=== PATIENT | female | born 1940 | race Caucasian/White ===

== ENCOUNTER → 2017-12-19 | Day surgery (SDC) | payer OTHER ==
--- OUTSIDE RECORDS SUMMARY | 2017-12-19 09:59 | XMS REPORT ---
:1940 Author Organization eClinicalWorks Care Team Providers Name Role Phone Karyna Kim Provider Role Unavailable Allergies, Adverse Reactions, Alerts Substance Reaction Event Type N.K.D.A. 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 Active Assessment Depression, unspecified depression F32.9 Active type Assessment Dementia without behavioral F03.90 Active disturbance, unspecified dementia type Problem Depression, unspecified depression F32.9 Active type Medications Medication Code Code Instructions Start End Date Status Dosage System Date Cranberry [facility] [address] 500 MG Orally Active as directed Prozac [facility] [id number] 10 MG Orally Active 1 capsule Once a day Results No Known Results Summary Purpose eClinicalWorks Submission
--- NOTE | 2017-12-19 11:20 | RAD REPORT ---
EXAM DESCRIPTION: US - Breast Core BX w/US Guidance - 12/19/2017 10:55 am CLINICAL HISTORY: Lateral right breast mass COMPARISON: Mammogram and ultrasound studies December 07 and December 05 TECHNIQUE: Patient presents for ultrasound-guided biopsy of the previously detailed 8-10 mm suspicio us lateral right breast mass. Prior imaging studies were reviewed. The ultrasound-guided biopsy procedure, risks and alternatives were discussed with the patient in det ail. After answering all questions, both oral and written consent were obtained. Patient had no contr aindicated allergy or medication history. Preliminary imaging again identified the lateral right breast mass. After time-out procedure, the nati ast was prepped and draped in the usual sterile fashion. From an inferior approach, skin and deeper t issues were anesthetized with 1% lidocaine. Under sonographic guidance a 14 gauge vacuum assisted biopsy needle was advanced with the tip placed at the inferior margin of the mass. A 2 centimeter core biopsy was obtained. The biopsy procedure was repeated 2 additional times. At the conclusion of the procedure a localization clip was placed using ultrasound guidance. During the course of the biopsy procedure, the mass was found be quite mobile and very easily displac ed. It was difficult to definitively fixed or stabilize the lesion for biopsy. Small amount of bleedi ng around the nodule obscure the margins further limiting ability to definitively biopsy lesion. At the conclusion the procedure a sterile bandage was placed to the puncture site. There was some min imal bleeding around the lesion but no measurable hematoma. Postprocedure care and precaution instruc tions were given to the patient. IMPRESSION: Ultrasound-guided biopsy of the right breast mass as detailed. A total of 3 core biopsie s were obtained with placement of a localization clip. The small lesion was very mobile and difficult to fix in place for definitive tissue sampling. The ma ss is suspicious on imaging. If the final pathology report shows no malignancy or does not provide a definitive diagnosis to explain the presence of this mass, excisional biopsy will likely be needed.
== END | disposition home or self-care (01) ==
LOC: DS 09:44
PROVIDERS: ATTEND Clinical Nurse Specialist Women's Health
DX: C50.911 Malignant neoplasm of unspecified site of right female breast (principal); Z17.0 Estrogen receptor positive status [ER+]
CPT/HCPCS: 19083; 88305

== ENCOUNTER 2018-06-22 11:21 | Emergency (ER) | payer OTHER ==
--- OUTSIDE RECORDS SUMMARY | 2018-06-22 11:25 | XMS REPORT ---
[...] End Date Status Dosage System Date Cranberry [facility] [address] 500 MG Orally Active as directed Prozac [facility] [id number] 10 MG Orally Active 1 capsule Once a day Results No Known Results Summary Purpose eClinicalWorks Submission
--- OUTSIDE RECORDS SUMMARY | 2018-06-22 11:25 | XMS REPORT ---
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
[2018-06-22] MEDS ORDERED: NA CHLORIDE 0.9% 500 ML ONE ×2 (12:03→14:59)
[2018-06-22 12:54] LABS: Absolute Lymphocytes (CBC) 0.9 K/uL (0.7-4.9); Absolute Monocytes 0.9 K/uL (0.1-1.3); Absolute Neutrophil 6.9 K/uL (1.8-8.0); Basophils % 0.4 % (0-1.3); Eosinophils % 0.7 % (0-4.4); Hematocrit 40.8 % (36.0-45.0); Lymphocytes % 10.7 % (15.3-44.8); MPV 9.4 fL (7.6-11.3); Monocytes % 10.1 % (3.3-12.3); RBC Red Blood Cell Count 4.58 M/uL (3.86-4.86)
[2018-06-22 13:03] LABS: Magnesium 2.1 mg/dL (1.8-2.4); Potassium 3.9 mmol/L (3.5-5.1)
--- NOTE | 2018-06-22 13:23 | EKG ---
Test Date: 2018-06-22 Test Time: 11:35:01 Log Driver: MALLORIE MEASUREMENT RESULTS: Intervals: Rate: 60 UT: 144 QRSD: 92 QT: 406 QTc: 406 Stevenson: P: 60 UT: 144 QRS: 5 T: 33 INTERPRETIVE STATEMENTS: Sinus rhythm with premature supraventricular complexes Low voltage QRS Septal infarct, age undetermined Abnormal ECG No previous ECG available for comparison Electronically Signed On 06-22-18 13:23:13 CDT by Kashif Rios
[2018-06-22 13:39] LABS: Urine Blood NEGATIVE (NEG); Urine Glucose NEGATIVE (NEG); Urine Protein NEGATIVE (NEG)
[2018-06-22 13:58] LABS: Urine Amorphous Sediment 3+ /HPF (NONE SEEN); Urine Bacteria NONE SEEN /HPF (<20); Urine Culture Reflex Order NOT NEEDED; Urine RBC NONE SEEN /HPF (NONE SEEN)
--- NOTE | 2018-06-22 14:40 | ER ---
Nurse's Notes [facility] Name: Jessica Thapa Age: 78 yrs Sex: Female : 1940 Arrival Date: 06/22/2018 Time: 11:27 Bed 17 Private MD: Diagnosis: Dehydration;Weakness Presentation: 06/22 11:28 Presenting complaint: EMS states: Facility reports increased weakness. Daughter reports jl7 she was not this weak yesterday, today she had to help her to the stretcher. Daughter reports mental status is baseline, she has an appointment with neurology in the next few weeks to discontinue medications due to shuffling gait and crying all the time. Transition of care: patient was not received from another setting of care. Onset of symptoms was June 22, 2018. Risk Assessment: Do you want to hurt yourself or someone else? Patient reports no desire to harm self or others. Initial Sepsis Screen: Does the patient meet any 2 criteria? No. Patient's initial sepsis screen is negative. Does the patient have a suspected source of infection? No. Patient's initial sepsis screen is negative. Care prior to arrival: Medication(s) given: Normal saline infusion, 500 mL, IV initiated. 20 GA, in the right wrist, Glucose check: 112. 11:28 Method Of Arrival: EMS: [facility] jl7 11:28 Acuity: CAITY 3 jl7 Historical: - Allergies: 11:35 No Known Allergies; jl7 - PMHx: 11:35 breast cancer; Bipolar disorder; Alzheimers; jl7 - Immunization history:: Adult Immunizations up to date. - Social history:: Smoking status: Patient/guardian denies using tobacco. - Ebola Screening: : No symptoms or risks identified at this time. - Family history:: not pertinent. - Hospitalizations: : No recent hospitalization is reported. Screenin:00 Abuse screen: Denies threats or abuse. Denies injuries from another. Nutritional jl7 screening: No deficits noted. Tuberculosis screening: No symptoms or risk factors identified. Fall Risk No fall in past 12 months (0 pts). Secondary diagnosis (15 points) Alzheimer's, dementia, IV access (20 points). Ambulatory Aid- None/Bed Rest/Nurse Assist (0 pts). Gait- Weak (10 pts.). Mental Status- Overestimates/Forgets Limitations (15 pts.). Total Demarco Fall Scale indicates High Risk Score (45 or more points). Fall prevention measures have been instituted. Side Rails Up X 2 Placed Close to Nursing Station Frequent Obs/Assessments Occuring Family Present and informed to notify staff if the need to leave the bedside As available patient and family educated on Fall Prevention Program and Strategies. Assessment: 11:30 General: Appears in no apparent distress. uncomfortable, Behavior is cooperative, jl7 crying. Pain: Denies pain. Neuro: Level of Consciousness is awake, alert, obeys commands, Oriented to person, place. Cardiovascular: Patient's skin is warm and dry. Respiratory: Airway is patent Respiratory effort is even, unlabored, Respiratory pattern is regular, symmetrical. GI: No signs and/or symptoms were reported involving the gastrointestinal system. : No signs and/or symptoms were reported regarding the genitourinary system. EENT: No signs and/or symptoms were reported regarding the EENT system. Derm: Skin is pink, warm \T\ dry. Musculoskeletal: No signs and/or symptoms reported regarding the musculoskeletal system. 12:30 Reassessment: Patient appears in no apparent distress at this time. No changes from jl7 previously documented assessment. Patient and/or family updated on plan of care and expected duration. Pain level reassessed. 14:00 Reassessment: Patient appears in no apparent distress at this time. Patient and/or jl7 family updated on plan of care and expected duration. Pain level reassessed. pt attempting to get out of bed, pt asking where her daughters went, told pt that her daughters went to get something to eat, able to get pt back in bed at this time. 14:25 Reassessment: Pt's daughters at bedside. jl7 14:45 Reassessment: Pt will be discharged once fluids are done infusing. jl7 16:00 Reassessment: Patient appears in no apparent distress at this time. No changes from jl7 previously documented assessment. Patient and/or family updated on plan of care and expected duration. Pain level reassessed. Vital Signs: 11:35 BP 133 / 62; Pulse 58; Resp 16 S; Temp 98.2(O); Pulse Ox 96% on R/A; Pain 0/10; jl7 13:07 BP 154 / 67; Pulse 55; Resp 14; Pulse Ox 97% on R/A; ms 16:00 BP 132 / 65; Pulse 59; Resp 16 S; Pulse Ox 100% on R/A; jl7 ED Course: 11:27 Patient arrived in ED. jl7 11:28 Jerald Beckford, SUSAN is Primary Nurse. jl7 11:34 Triage completed. jl7 11:35 Arm band placed on right wrist. jl7 11:35 Patient has correct armband on for positive identification. Placed in gown. Bed in low jl7 position. Call light in reach. Side rails up X2. 11:35 air sampling and monitoring on. Pulse ox on. NIBP on. Warm blanket given. jl7 11:38 Bruce Valladares MD is Attending Physician. rn 11:59 EKG done, by voip technician. reviewed by Bruce Valladares MD. at1 12:45 Initial lab(s) drawn, by or, sent to lab. First set of blood cultures drawn by me, jl7 Urine collected: straight cath specimen, cloudy, Amount Returned: 800mL. Straight cath inserted, using sterile technique, 16 Fr. Specimen obtained. Returned cloudy urine. Patient tolerated well. 12:53 Inserted saline lock: 22 gauge in right antecubital area, using aseptic technique. jl7 Blood collected. 14:[address] via stretcher. vr 16:23 No provider procedures requiring assistance completed. IV discontinued, intact, jl7 bleeding controlled, No redness/swelling at site. Pressure dressing applied. Administered Medications: 12:30 Drug: NS 0.9% 500 ml Route: IV; Rate: bolus; Site: right antecubital; jl7 14:19 Follow up: IV Status: Completed infusion; IV Intake: 500ml jl7 14:47 Drug: NS 0.9% 500 ml Route: IV; Rate: bolus; Site: right antecubital; jl7 16:15 Follow up: IV Status: Completed infusion; IV Intake: 500ml jl7 Intake: 14:19 IV: 500ml; Total: 500ml. jl7 16:15 IV: 500ml; Total: 1000ml. jl7 Outcome: 14:40 Discharge ordered by . rn 16:23 Discharged to home ambulatory, with family. jl7 16:23 Condition: stable 16:23 Discharge instructions given to patient, family, Instructed on discharge instructions, follow up and referral plans. Demonstrated understanding of instructions, follow-up care. 16:23 Patient left the ED. iw Signatures: Maria Fernanda Reed, RN Denisse Huynh ms, Roman, MD MD rn Davis, Victoria vr Gonzales, Amanda, system architect EKG Tat1 Jerald Beckford RN RN jl7
--- NOTE | 2018-06-22 14:40 | EDPHYS ---
Physician Documentation [facility] Name: Jessica Thapa Age: 78 yrs Sex: Female : 1940 Arrival Date: 06/22/2018 Time: 11:27 Bed 17 Private MD: ED Physician Bruce Valladares HPI: 06/22 12:37 This 78 yrs old Female presents to ER via EMS with complaints of generalized rn weakness. 12:37 Family reports seemed normal last night, today noticed generalized weakness, trouble rn standing up, otherwise normal mentation, no head injury. Uses pessary and has had UTI with delirium in past. No fever. Denies pain. No vomiting/diarrhea. . Onset: The symptoms/episode began/occurred at an unknown time. Severity of symptoms: At their worst the symptoms were mild in the emergency department the symptoms are unchanged. The patient has experienced a previous episode. The patient has not recently seen a physician. Historical: - Allergies: 11:35 No Known Allergies; jl7 - PMHx: 11:35 breast cancer; Bipolar disorder; Alzheimers; jl7 - Immunization history:: Adult Immunizations up to date. - Social history:: Smoking status: Patient/guardian denies using tobacco. - Ebola Screening: : No symptoms or risks identified at this time. - Family history:: not pertinent. - Hospitalizations: : No recent hospitalization is reported. ROS: 12:37 Constitutional: Negative for fever, chills, and weight loss, Eyes: Negative for injury, rn pain, redness, and discharge, Neck: Negative for injury, pain, and swelling, Cardiovascular: Negative for chest pain, palpitations, and edema, Respiratory: Negative for shortness of breath, cough, wheezing, and pleuritic chest pain, Abdomen/GI: Negative for abdominal pain, nausea, vomiting, diarrhea, and constipation, Back: Negative for injury and pain, MS/Extremity: Negative for injury and deformity, Skin: Negative for injury, rash, and discoloration, Neuro: + generalized weakness, no sensory changes Exam: 12:37 Constitutional: This is a well developed, well nourished patient who is awake, alert, rn and in no acute distress. Head/Face: Normocephalic, atraumatic. ENT: MMM Respiratory: No increased work of breathing, no retractions or nasal flaring. Abdomen/GI: soft, non-tender Skin: Warm, dry, no evidence of cellulitis. MS/ Extremity: Pulses equal, no cyanosis. Neurovascular intact. Equal circumference Neuro: Awake and alert, GCS 15, oriented to person,not time or place. Cranial nerves II-XII grossly intact. Motor strength 4/5 in all extremities. Sensory grossly intact. Vital Signs: 11:35 BP 133 / 62; Pulse 58; Resp 16 S; Temp 98.2(O); Pulse Ox 96% on R/A; Pain 0/10; jl7 13:07 BP 154 / 67; Pulse 55; Resp 14; Pulse Ox 97% on R/A; ms 16:00 BP 132 / 65; Pulse 59; Resp 16 S; Pulse Ox 100% on R/A; jl7 MDM: 11:38 Patient medically screened. rn 14:38 Differential Diagnosis dehydration, UTI, electrolyte imbalance. Data reviewed: vital rn signs, nurses notes, lab test result(s), EKG, and as a result, I will discharge patient. Counseling: I had a detailed discussion with the patient and/or guardian regarding: the historical points, exam findings, and any diagnostic results supporting the discharge/admit diagnosis, lab results, the need for outpatient follow up, to return to the emergency department if symptoms worsen or persist or if there are any questions or concerns that arise at home. Response to treatment: the patient's symptoms have markedly improved after treatment, and as a result, I will discharge patient. Special discussion: I discussed with the patient/guardian in detail that at this point there is no indication for admission to the hospital. It is understood, however, that if the symptoms persist or worsen the patient needs to return immediately for re-evaluation. ED course: Pt improved with IV fluids, + ketones in urine, concentrated urine, UA neg for infection, neg procalcitonin, at baseline mentally so ct head cancelled. Family ok with dc home, oral rehydration at home, and return precautions.. 06/22 11:47 Order name: CBC with Diff rn 06/22 11:47 Order name: Basic Metabolic Panel; Complete Time: 14:33 rn 06/22 11:47 Order name: Urine Culture rn 06/22 11:47 Order name: Urine Microscopic Only; Complete Time: 14:33 rn 06/22 11:47 Order name: Blood Culture Adult (2) rn 06/22 11:47 Order name: Magnesium; Complete Time: 14:33 rn 06/22 11:47 Order name: IV Start; Complete Time: 12:34 rn 06/22 11:47 Order name: CBC with Automated Diff; Complete Time: 13:00 [facility] 06/22 11:48 Order name: Procalcitonin; Complete Time: 14:33 rn 06/22 12:54 Order name: Urine Dipstick--Ancillary (enter results); Complete Time: 14:33 eb 06/22 13:04 Order name: EKG Electrocardiogram [facility] 06/22 11:47 Order name: Urine Dipstick-Ancillary (obtain specimen); Complete Time: 12:40 rn Administered Medications: 12:30 Drug: NS 0.9% 500 ml Route: IV; Rate: bolus; Site: right antecubital; jl7 14:19 Follow up: IV Status: Completed infusion; IV Intake: 500ml jl7 14:47 Drug: NS 0.9% 500 ml Route: IV; Rate: bolus; Site: right antecubital; jl7 16:15 Follow up: IV Status: Completed infusion; IV Intake: 500ml jl7 Disposition: 06/22/18 14:40 Discharged to Home. Impression: Dehydration, Weakness. - Condition is Stable. - Discharge Instructions: Dehydration, Adult, Weakness. - Medication Reconciliation Form, Thank You Letter, Antibiotic Education, Prescription Opioid Use form. - Follow up: Private Physician; When: As needed; Reason: Recheck today's complaints, Re-evaluation by your physician. - Problem is new. - Symptoms have improved. Signatures: Dispatcher [employer] [facility] Maria Fernanda Reed RN RN iw Nieto, Roman, MD MD rn Leal, Jahala, RN RN jl7 Corrections: (The following items were deleted from the chart) 14:46 14:34 Head Brain Wo Cont+CT.RAD.BRZ ordered. [facility] 16:23 14:40 06/22/2018 14:40 Discharged to Home. Impression: Dehydration; Weakness. Condition iw is Stable. Forms are Medication Reconciliation Form, Thank You Letter, Antibiotic Education, Prescription Opioid Use. Follow up: Private Physician; When: As needed; Reason: Recheck today's complaints, Re-evaluation by your physician. Problem is new. Symptoms have improved. rn
== END 2018-06-22 16:23 | disposition home or self-care (01) ==
LOC: ER 11:21
DX: E86.0 Dehydration (principal); G30.9 Alzheimer's disease, unspecified; F02.80 Dementia in other diseases classified elsewhere, unspecified severity, without behavioral disturbance, psychotic disturbance, mood disturbance, and anxiety; Z85.3 Personal history of malignant neoplasm of breast
CPT/HCPCS: 36415; 51702; 80048; 81003; 81015; 83735; 84145; 85025; 87040; 87086; 87088; 93005; 96360; 96361; 99285